=== PATIENT | male | born 1995 | race African-American/Black ===

== ENCOUNTER 2018-04-26 12:48 | Emergency (ER) | payer OTHER ==
--- NOTE | 2018-04-26 13:20 | ED Physician Documentation ---
PD HPI LOWER EXT INJURY - Stated complaint Stated Complaint: R KNEE INJ - Chief complaint Chief Complaint: Ext Problem - History obtained from History obtained from: Patient - History of Present Illness PD HPI LOW EXT INJURY LOCATION: Right, Knee Type of injury: Twist (he was in a leg lock wrestling, with the leg/knee in extension but tight, and then his leg twisted and he felt a pop and pain laterally. Pain with ROM and walking. No locking nor giving out. He had applied ice pack to the area and left it there, and notes the skin there is tender and slightly discolored. No blistering at this point.) Timing - onset: Last night Timing - duration: Days (08/05) Timing - details: Abrupt onset, Still present Improved by: Rest Worsened by: Moving, Palpating, Other (walking) Associated symptoms: Other (no locking nor giving out.). No: Weakness, Numbness, Swelling Similar symptoms before: Has not had sx before Recently seen: Not recently seen Review of Systems Skin: reports: Other (area of skin tenderness where he had ice pack on for long time.). denies: Rash, Lesions, Abrasion (s) PD PAST MEDICAL HISTORY - Past Medical History Musculoskeletal: None - Present Medications Home Medications: Ambulatory Orders Medication Instructions Recorded Confirmed Ibuprofen [Motrin] 600 mg PO TID #30 tab 04/26/18 - Allergies Allergies/Adverse Reactions: Allergies Allergy/AdvReac Type Severity Reaction Status Date / Time No Known Drug Allergies Allergy Verified 04/26/18 13:15 PD ED PE NORMAL - Vitals Vital signs reviewed: Yes - General General: Alert and oriented X 3, No acute distress, Well developed/nourished - Derm Derm: Normal color, Warm and dry - Extremities Extremities: Other (right knee without effusion. Cruciate testing is sturdy and not painful. ROM of the knee is full. There is tenderness laterally over joint line and distal IT band area. Hamstrings are firm and not tender. Area of skin tenderness lateral upper calf with some skin darkening there, no blistering, c/w some local cold injury. Will heal okay. Collateral knee ligament testing is also sturdy, but some pain with LCL stress. ) Results - Vitals Vitals: Vital Signs - 24 hr 04/26/18 04/26/18 13:15 14:28 Temperature 36.5 C 36.9 C Heart Rate 67 70 Respiratory 16 18 Rate Blood Pressure 139/60 H 126/97 H O2 Saturation 100 100 Oxygen O2 Source Room air - Rads (name of study) knee Radiology: Prelim report reviewed (no fractures nor acute injury) PD MEDICAL DECISION MAKING - ED course Complexity details: considered differential (seems likely IT band insertion strain vx. LCL. No effusion and knee exam is sturdy. Does not seem like more significant injury. He has patch of local partial thickness frostbite lateral upper calf which will heal okay. Likely a bit of pigment change to the area though. ), d/w patient - Sepsis Event Vital Signs: Vital Signs - 24 hr 04/26/18 04/26/18 13:15 14:28 Temperature 36.5 C 36.9 C Heart Rate 67 70 Respiratory 16 18 Rate Blood Pressure 139/60 H 126/97 H O2 Saturation 100 100 Oxygen O2 Source Room air Departure - Departure Disposition: 01 Home, Self Care Clinical Impression: Frostbite of right lower extremity Strain of right knee Qualifiers: Encounter type: initial encounter Qualified Code(s): S86.911A - Strain of unspecified muscle(s) and tendon(s) at lower leg level, right leg, initial encounter Condition: Stable Record reviewed to determine appropriate education?: Yes Instructions: ED Frostbite Cold Injury, ED Sprain Knee Follow-Up: [facility] [Provider Group] Prescriptions: Ibuprofen [Motrin] 600 mg PO TID #30 tab Comments: The x-ray appears normal which only views the bones. The majority of knee injuries are soft tissue which includes ligaments muscles and cartilage. This sounds likely to be a strain of the lateral knee muscles and the collateral ligament. You do have a local frostbite which should heal up without any problems. Use a knee brace when up and around for the next several days. [facility] of days. Off work tonight and then limited duty with a knee brace for the next several days. Ibuprofen a few times a day. Forms: Activity restrictions Discharge Date/Time: 04/26/18 14:35
--- NOTE | 2018-04-26 14:27 | XRAY Report ---
Reason: injury yesterday while wrestling Procedure Date: 04/26/2018 Accession Number: [id number] / [id number] Procedure: XR - Knee 3 View RT CPT Code: FULL RESULT: EXAM: RIGHT KNEE RADIOGRAPHY EXAM DATE: 04/26/2018 02:04 PM. CLINICAL HISTORY: Knee pain post injury. COMPARISON: None. TECHNIQUE: 3 views. FINDINGS: Bones: Normal. No fractures or bone lesions. Joints: Normal. No effusion. No subluxations. Soft Tissues: Normal. No soft tissue swelling. IMPRESSION: Normal knee radiography. [facility]
[2018-04-26 14:29] VITALS: BP 126/97
== END 2018-04-26 14:35 | disposition home or self-care (01) ==
LOC: ED 12:48
DX: S86.911A Strain of unspecified muscle(s) and tendon(s) at lower leg level, right leg, initial encounter (principal); X50.1XXA Overexertion from prolonged static or awkward postures, initial encounter; Y93.72 Activity, wrestling; T33.71XA Superficial frostbite of right knee and lower leg, initial encounter; W93.01XA Contact with dry ice, initial encounter
CPT/HCPCS: 99283

== ENCOUNTER 2021-07-25 12:42 | Outpatient (CLI) | payer OTHER ==
[2021-07-25 13:51] VITALS: BP 133/94
--- NOTE | 2021-07-25 13:51 | SLEEP CARE CONSULTATION ---
Information from patient questionnaire entered by Melissa Forrest MA. I have reviewed and concur with the information entered by Melissa Forrest MA. This document represents the service I personally performed and the decisions made by me, Daxa Ruano ARNP. History of Present Illness Service Date and Time: 07/25/2021 1242 Reason for Visit: New patient Chief Complaint: reports: Insomnia, Snoring, Observed pauses in breathing, Fatigue, Frequent awakenings at night, Other (forgetfulness, hard time concentrate) Date of Onset: almost 1 year Usual bedtime: 1 AM (artificial plastic eye maker) Time it takes to fall asleep: 30-45 minutes Snores at night: Yes Observed to quit breathing while asleep: Yes Sleeps alone due to snoring: No Number of times waking at night: 3+ Reasons for waking at night: reports: Snoring, Gasping for air, Other (noise) Toss, Turn, or Twitch while sleeping: Yes Recalls having dreams: No Usually gets out of bed at: 9-10 AM (artificial plastic eye maker) Feels refreshed in the morning: No Morning headache: Yes (3 days a week, resolve in late afternoon) Sleepy or fatigued during the day: Yes Ever fallen asleep while driving: Yes (drowsy driving, no accidents (close calls)) Takes day naps: Yes (1 time a week, 40 minutes) Dreams during day naps: Yes Prior sleep studies: No Additional HPI information: I had the pleasure of seeing CHARLES SOTO today regarding the possibility of him having a sleep disorder. His current complaints are fatigue, frequent night awakenings, insomnia, observed pauses in breathing, and snoring loudly. His girlfriend has told him that he snores very loudly. He will stop breathing and then "chomping" before starting to breathe again. He has a hard time with his memory, hard time concentrating. This has been happening for the last year. He states it takes 30-45 minutes to fall asleep and then he will wake up at night and have a hard time falling asleep. He is usually on artificial plastic eye maker. - Parasomnia Symptoms Ever been unable to move upon waking from sleep: No Walks in sleep: No Talks in sleep: No Ever acted out dreams in sleep: No Ever felt weak in the knees when startled or emotional: No Bothered by creepy, crawly, restless sensations in legs: No Problems with memory or concentration: Yes (both, memory is bad, difficulty concentrating on conversations/tasks) Subjective Initial [place] Sleepiness Scale score: 15 Social History The patient's occupation is a AM. Patient is Single and lives in . Have you smoked in the past 12 months: No Alcohol use: Yes Alcohol amount and frequency: 2 drinks, once every 2 weeks Caffeine use: Yes Caffeine amount and frequency: 1 cup, a few times a week Family History Family history of sleep disordered breathing: Yes Family Hx Sleep Apnea: Father: Snoring Allergies and Home Medications Drug allergies reviewed: Yes (NKDA) Home medication list reviewed: Yes (no daily medications) Allergy and home medication list: occasional Vitamin D Review of Systems Cardiovascular: denies: high blood pressure Respiratory: reports: chronic cough Gastrointestinal: denies: heartburn Neurological: reports: headaches Psychiatric: reports: anxiety (from [place] and [place] ), depression Ear/Nose/Throat: reports: nasal congestion, sinus problems, dry mouth/throat Physical Exam Vital signs obtained and entered by: PAMELA DIAZ Blood Pressure: 133/94 Cuff size: wrist Heart Rate: 63 O2 Saturation: 96 Height: 5 ft 10 in Weight: 210 lb Body Mass Index: 30.1 BMI Classification: Obese Neck circumference: 16.1 (inches) Mouth and throat: narrow oropharynx Soft palate: long Hard palate: normal Uvula: normal Uvula visualization: 25% Mallampati Class III Tongue: enlarged in size with teeth syed on lateral edges Tonsils: 1+ Neck: normal w/o lymphadenopathy or thyromegaly Heart: regular rate and rhythm Lungs: clear bilaterally Impression and Plan 1. Suspected Obstructive Sleep Apnea-Hypopnea Syndrome, as suggested by a history of loud and irregular snoring, observed cessation of breath while asleep, gasping or choking in sleep, morning headache, frequent awakening during the night, unrefreshed sleep, cognitive impairment, and excessive daytime sleepiness. Narrow oropharynx and obesity are common predisposing factors for obstructive sleep apnea-hypopnea syndrome. I recommend proceeding to polysomnography to confirm the diagnosis and to assess severity. If the patient has significant sleep disordered breathing, a manual CPAP titration study will also be performed to find the optimal treatment pressure. I informed the patient of what the sleep studies involve and after some discussion, obtained agreement to proceed. The pathophysiology of obstructive sleep apnea-hypopnea syndrome was discussed with the patient and health risks of cardiovascular and cerebrovascular disease if not treated. AAS brochure for obstructive sleep apnea-hypopnea syndrome given and reviewed. Risks of drowsy driving discussed in detail and patient advised to avoid long distance driving and to loin puller at the first sign of drowsiness. Patient agreed to plan. * Schedule polysomnography/HST. * Avoid long distance driving or driving when feeling sleepy. * Avoid alcohol, sedative and muscle relaxant around bedtime. * Attempt to lose weight. * Review instructions provided by trained office staff on how to prepare for the sleep study. * Return for follow-up after sleep study completed. Counseling Topics: Weight loss health impact Visit Type: In Office Time Spent with Patient (minutes): 33 Provider Statement: I spent 100% of the Face to Face Visit with the patient with greater than 50% spent counseling the patient and coordination of care.
== END 2021-07-25 12:43 | disposition home or self-care (01) ==
LOC: SC 12:42
PROVIDERS: ATTEND Nurse Practitioner Family
DX: R06.83 Snoring (principal); R06.81 Apnea, not elsewhere classified; R51.9 Headache, unspecified; G47.8 Other sleep disorders; R41.89 Other symptoms and signs involving cognitive functions and awareness; G47.10 Hypersomnia, unspecified; E66.9 Obesity, unspecified; Z68.30 Body mass index [BMI] 30.0-30.9, adult
CPT/HCPCS: 99203; 99212

== ENCOUNTER 2021-08-15 08:19 | Outpatient (CLI) | payer OTHER | END 2021-08-15 08:20 | disposition home or self-care (01) | LOC: SC 08:19 | PROVIDERS: ATTEND Nurse Practitioner Family | DX: R06.83 Snoring (principal); R06.81 Apnea, not elsewhere classified; G47.8 Other sleep disorders; R51.9 Headache, unspecified; R53.83 Other fatigue; G47.10 Hypersomnia, unspecified; R09.02 Hypoxemia | CPT/HCPCS: 95806 ==

== ENCOUNTER 2021-08-28 10:44 | Outpatient (CLI) | payer OTHER ==
[2021-08-28 11:17] VITALS: BP 194/90
--- NOTE | 2021-08-28 11:17 | SLEEP CARE CONSULTATION ---
Information from patient questionnaire entered by Melissa Forrest MA. I have reviewed and concur with the information entered by Melissa Forrest MA. This document represents the service I personally performed and the decisions made by , Daxa Ruano ARNP. History of Present Illness Service Date and Time: 08/28/2021 1044 Initial [place] Sleepiness Scale score: 15 Current [place] Sleepiness Scale score: 15 (2021) Additional HPI information: OSACECILIA SOTO returns for follow up and results of the recently performed home sleep study. The patient was informed of the following findings: No significant sleep disordered breathing with an average AHI of 1.6 and leslye oxygen saturation of 87%. However patient supine AHI was 31.6 and recommendation to avoid supine sleep was given. I explained the pathophysiology behind obstructive sleep apnea. Patient does not have sleep apnea and was advised how weight gain could increase the risk of developing sleep apnea in the future. I strongly encouraged the patient to lose weight. Patient does not have significant sleep disordered breathing but has elevated AHI in supine position so advised positional therapy. Methods to achieve positional management therapy were discussed; such as, positioning with pillows. Patient counseled not drink alcohol less than 4 hours before bedtime as it can increase snoring and apnea. Patient was cautioned about risks of drowsy driving until sleepiness symptoms resolve. Sleep Study - Results Prior sleep studies: No Polysomnography/Home Sleep Study results: Physician Impression: The quality of the study is good. The length of the study is adequate (> 240 minutes). Please also see the tabulated and graphic data. 1. No significant sleep disordered breathing, with an AHI of 1.6/hr and leslye SaO2 of 87%. During the study, the patient had 2 apneas (2 obstructive, 0 central, 0 mixed) and 6 hypopneas. The longest episode lasted 84.0 seconds. The patient had very limited supine sleep (supine AHI was 31.6 and nonsupine, 1.45). 2. Hypoxemia (ICD-10 R09.02), minimal, with the lowest oxygen saturation of 87 % and 2.9 minutes with SaO2 under 90%. Baseline oxygen saturation was normal (Average oxygen saturation was 94%). Recommendation: No treatment is recommended. However, because the supine AHI was elevated at 31.6, the patient should avoid sleeping supine. Clinical correlation advised. Allergies and Home Medications Known drug allergies: No Drug allergies reviewed: Yes Home medication list reviewed: Yes (no changes) Review of Systems Review of systems same as previous: Yes (no changes) Physical Exam Vital signs obtained and entered by: PAMELA DIAZ Blood Pressure: 194/90 (LEFT , PULSE 63) Cuff size: wrist Heart Rate: 63 O2 Saturation: 94 (WITH PAPER MASK) Height: 5 ft 10 in Weight: 207 lb (W/O CLOTHES) Body Mass Index: 29.7 BMI Classification: Overweight Impression and Plan 1. Suspected Obstructive Sleep Apnea-Hypopnea Syndrome, as suggested by a history of loud and irregular snoring, observed cessation of breath while asleep, gasping or choking in sleep, morning headache, frequent awakening during the night, unrefreshed sleep, cognitive impairment, and excessive daytime sleepiness. Patient completed a HST that showed significant elevation when supine. I would like to repeat the sleep study in the lab to verify and clarify HST results. Patient voiced agreement with repeating the sleep study. I recommend proceeding to polysomnography to confirm the diagnosis and to assess severity. If the patient has significant sleep disordered breathing, a manual CPAP titration study will also be performed to find the optimal treatment pressure. I informed the patient of what the sleep studies involve and after some discussion, obtained agreement to proceed. The pathophysiology of obstructive sleep apnea-hypopnea syndrome was discussed with the patient and health risks of cardiovascular and cerebrovascular disease if not treated. Risks of drowsy driving discussed in detail and patient advised to avoid long distance driving and to hide puller at the first sign of drowsiness. Patient agreed to plan. * Schedule polysomnography * Avoid long distance driving or driving when feeling sleepy. * Avoid alcohol, sedative and muscle relaxant around bedtime. * Attempt to lose weight. * Review instructions provided by trained office staff on how to prepare for the sleep study. * Return for follow-up after sleep study completed. Counseling Topics: Weight loss health impact Visit Type: In Office Time Spent with Patient (minutes): 20 Provider Statement: I spent 100% of the Face to Face Visit with the patient with greater than 50% spent counseling the patient and coordination of care.
== END 2021-08-28 10:45 | disposition home or self-care (01) ==
LOC: SC 10:44
PROVIDERS: ATTEND Nurse Practitioner Family
DX: R06.83 Snoring (principal); G47.8 Other sleep disorders; R51.9 Headache, unspecified; G47.10 Hypersomnia, unspecified; R41.89 Other symptoms and signs involving cognitive functions and awareness
CPT/HCPCS: 99212; 99213

== ENCOUNTER 2021-09-12 20:23 | Outpatient (CLI) | payer OTHER | END 2021-09-12 20:24 | disposition home or self-care (01) | LOC: SC 20:23 | PROVIDERS: ATTEND Nurse Practitioner Family | DX: R06.83 Snoring (principal); G47.8 Other sleep disorders; R51.9 Headache, unspecified; R06.81 Apnea, not elsewhere classified | CPT/HCPCS: 95810 ==

== ENCOUNTER 2021-09-24 11:29 | Outpatient (CLI) | payer OTHER ==
[2021-09-24 13:06] VITALS: BP 129/97
--- NOTE | 2021-09-24 13:06 | SLEEP CARE CONSULTATION ---
Information from patient questionnaire entered by Melissa Forrest MA. I have reviewed and concur with the information entered by Melissa Forrest MA. This document represents the service I personally performed and the decisions made by me, Kj Major MD, [facility]. History of Present Illness Service Date and Time: 09/24/2021 1129 Initial [place] Sleepiness Scale score: 15 Current [place] Sleepiness Scale score: 12 (2021) Additional HPI information: Mr. Kelley returned for follow up of the sleep study he had on 09/12/2021. The polysomnography showed that the patient had normal sleep efficiency. The sleep architecture was relatively normal as well considering the first night effect. Respiratory monitoring showed no significant sleep disordered breathing (AHI = 1.1) or hypoxia (leslye oxygen saturation of 89%). The patient slept adequately in supine position (supine AHI = 0.0; non-supine = 1.27). Snore was light to moderate in intensity. There was no significant periodic leg movement of sleep. Cardiac rhythm was normal sinus rhythm without significant arrhythmia. No abnormal behavior (parasomnia) observed during the night. The patient was informed of these findings. I explained to him that the in- laboratory polysomnography was normal. It confirms the home sleep apnea test (HSAT) findings. Sleep Study - Results Type of Sleep Study: Polysomnography (F/U POLY) Prior sleep studies: No Allergies and Home Medications Known drug allergies: Yes Drug allergies reviewed: Yes Home medication list reviewed: Yes Allergy and home medication list: Allergies No Known Drug Allergies Allergy (Verified 04/26/18 13:15) Review of Systems Review of systems same as previous: Yes Physical Exam Vital signs obtained and entered by: PAMELA DIAZ Blood Pressure: 129/97 (RIGHT, PULSE 60, RESP 16,) Heart Rate: 71 O2 Saturation: 97 (PAPER MASK) Height: 5 ft 10 in Weight: 205 lb (W/O CLOTHES) Body Mass Index: 29.4 BMI Classification: Overweight Impression and Plan IMPRESSION: 1. Primary Snore (ICD-10 R06.83), light to moderate but no significant sleep-disordered breathing. The patient already has a plan to see an ENT regarding his snore. PLAN: 1. Return to the sleep clinic on as needed basis. Follow up with Sleep Care in: as needed Follow up with: Other (ENT) Visit Type: In Office Time Spent with Patient (minutes): 15 Provider Statement: I spent 100% of the Face to Face Visit with the patient with greater than 50% spent counseling the patient and coordination of care.
== END 2021-09-24 11:30 | disposition home or self-care (01) ==
LOC: SC 11:29
PROVIDERS: ATTEND Internal Medicine Pulmonary Disease
DX: R06.83 Snoring (principal)
CPT/HCPCS: 99212